=== PATIENT | female | born 1940 | race Caucasian/White ===

== ENCOUNTER 2018-04-10 10:28 | Outpatient (CLI) | payer MEDICARE | END 2018-04-10 10:29 | disposition home or self-care (01) | LOC: BICRAD 10:28 | PROVIDERS: ATTEND Podiatrist | DX: M19.072 Primary osteoarthritis, left ankle and foot (principal); Z98.890 Other specified postprocedural states ==

== ENCOUNTER 2019-10-13 14:22 | Emergency (ER) | payer MEDICARE | END 2019-10-13 15:35 | disposition home or self-care (01) | LOC: ERS 14:22 | DX: T78.40XA Allergy, unspecified, initial encounter (principal) | CPT/HCPCS: 99282 ==

== ENCOUNTER 2021-03-02 21:52 | Observation (INO) | payer MEDICARE ==
[~2021-03-02 21:52] MED LIST: Iopamidol-370 76% 500 ML 1 ML ONE
[2021-03-02 22:44] LABS: ALT (SGPT) 9 U/L (8-55); AST (SGOT) 20 U/L (5-34); Albumin 3.7 g/dL (3.4-4.8); Alkaline Phosphatase 54 U/L (40-110); Anion Gap 15 mmol/L (10-20); BUN (Urea Nitrogen) 11 mg/dL (9.8-20.1); Bilirubin, Total Less than 0.2 mg/dL (0.2-1.2); Calc. Creatinine Clearance 0 mL/min (70-130); Calcium 8.4 mg/dL (7.8-10.44); Carbon Dioxide 21 mmol/L (23-31); Chloride 109 mmol/L (98-107); Globulin 2.5 g/dL (2.4-3.5); Glucose 84 mg/dL (83-110); Potassium 5.2 mmol/L (3.5-5.1); Protein, Total 6.2 g/dL (5.8-8.1); Sodium 140 mmol/L (136-145)
[2021-03-02 22:47] LABS: Hemoglobin 11.2 g/dL (12.0-16.0); Mean Corpuscular HGB CONC 30.3 g/dL (32.0-36.0); Mean Corpuscular Hemoglobin 29.6 pg (27.0-31.0); Mean Corpuscular Volume 97.4 fL (78.0-98.0); Mean Platelet Volume 7.5 fL (7.4-10.4); Platelet Count 173 thou/uL (130-400); RBC Distribution Width 14.7 % (11.5-14.5); Red Blood Cell (RBC) Count 3.77 mill/uL (4.20-5.40)
[2021-03-02 22:48] LABS: Lymphocytes 97 % (21-51); MDiff Complete? YES; Monocytes 1 % (0-10); Neutrophil 2 % (42-75); Platelet Morphology Comment Appears Adequate
[2021-03-03 00:26] LABS: SARS-CoV-2 NAA Rapid Test Not Detected (NotDetected)
[2021-03-03 00:38] LABS: Phosphorus 2.5 mg/dL (2.3-4.7)
[2021-03-03 01:41] LABS: Troponin I Less than 0.010 ng/mL (< 0.028)
[2021-03-03 05:49] LABS: Troponin I Less than 0.010 ng/mL (< 0.028)
[2021-03-03] MEDS ORDERED: Ondansetron ODT 4 MG TAB PO PRN (06:48)
[2021-03-03] MEDS ORDERED: Ondansetron PF 4 MG/2 ML Vial IVP PRN (06:48)
[2021-03-03] MEDS ORDERED: Acetaminophen 325 MG TAB PO PRN (06:48)
[2021-03-03 07:29] LABS: Hemoglobin 12.3 g/dL (12.0-16.0); Mean Corpuscular HGB CONC 31.7 g/dL (32.0-36.0); Mean Corpuscular Hemoglobin 31.3 pg (27.0-31.0); Mean Corpuscular Volume 98.5 fL (78.0-98.0); Mean Platelet Volume 7.5 fL (7.4-10.4); Platelet Count 169 thou/uL (130-400); RBC Distribution Width 14.7 % (11.5-14.5); Red Blood Cell (RBC) Count 3.92 mill/uL (4.20-5.40)
[2021-03-03 07:41] LABS: Anion Gap 11 mmol/L (10-20); BUN (Urea Nitrogen) 10 mg/dL (9.8-20.1); Calc. Creatinine Clearance 0 mL/min (70-130); Calcium 8.2 mg/dL (7.8-10.44); Carbon Dioxide 25 mmol/L (23-31); Chloride 113 mmol/L (98-107); Glucose 97 mg/dL (83-110); Potassium 5.1 mmol/L (3.5-5.1); Sodium 144 mmol/L (136-145)
[2021-03-03 07:59] LABS: MDiff Complete? YES
[2021-03-03 08:00] LABS: Lymphocytes 91 % (21-51); Monocytes 3 % (0-10); Neutrophil 6 % (42-75); Platelet Morphology Comment Appears Adequate; Polychromasia SLIGHT = 2-3 cells (100X) (0-2/hpf)
[2021-03-03] MEDS ORDERED: Furosemide 40 MG/4 ML VIAL SLOW IVP SCH (09:00)
[2021-03-03] MEDS ORDERED: Enoxaparin Sodium 40 MG/0.4 ML SYRINGE ONE (09:55)
[2021-03-03] MEDS ORDERED: Furosemide 40 MG/4 ML VIAL ONE (09:55)
[2021-03-03] MEDS: Enoxaparin Sodium 40 MG/0.4 ML SYRINGE SC SCH (10:36)
[2021-03-03] MEDS: Furosemide 40 MG/4 ML VIAL SLOW IVP SCH (10:37)
[2021-03-03 17:37] VITALS: BMI 22.9
[2021-03-03] MEDS ORDERED: Loratadine 10 MG TAB PO SCH (21:15)
[2021-03-03] MEDS ORDERED: Zolpidem Tartrate 5 MG TAB PO SCH (22:00)
[2021-03-04 05:35] LABS: ALT (SGPT) 8 U/L (8-55); AST (SGOT) 16 U/L (5-34); Albumin 3.7 g/dL (3.4-4.8); Alkaline Phosphatase 58 U/L (40-110); Anion Gap 10 mmol/L (10-20); BUN (Urea Nitrogen) 10 mg/dL (9.8-20.1); Bilirubin, Total 0.3 mg/dL (0.2-1.2); Calc. Creatinine Clearance 76 mL/min (70-130); Calcium 8.6 mg/dL (7.8-10.44); Carbon Dioxide 28 mmol/L (23-31); Chloride 107 mmol/L (98-107); Globulin 2.5 g/dL (2.4-3.5); Glucose 84 mg/dL (83-110); Mean Corpuscular HGB CONC 30.8 g/dL (32.0-36.0); Mean Corpuscular Hemoglobin 30.2 pg (27.0-31.0); Mean Platelet Volume 7.6 fL (7.4-10.4); Platelet Count 152 thou/uL (130-400); Potassium 3.6 mmol/L (3.5-5.1); Protein, Total 6.2 g/dL (5.8-8.1); RBC Distribution Width 14.7 % (11.5-14.5); Red Blood Cell (RBC) Count 3.99 mill/uL (4.20-5.40); Sodium 141 mmol/L (136-145); White Blood Cell (WBC) Count 59.5 thou/uL (4.8-10.8)
[2021-03-04 06:51] LABS: Band 1 % (5-11); Eosinophils 1 % (0-10); Lymphocytes 90 % (21-51); Monocytes 2 % (0-10); Neutrophil 6 % (42-75)
[2021-03-04 06:52] LABS: MDiff Complete? YES
[2021-03-04 08:18] VITALS: TEMP 98.2
[2021-03-04] MEDS ORDERED: FLUoxetine HCl 20 MG CAP PO SCH (09:00)
[2021-03-04] MEDS ORDERED: predniSONE 50 MG TAB PO SCH (09:00)
[2021-03-04 09:31] LABS: Platelet Morphology Comment Appears Adequate; Polychromasia SLIGHT = 2-3 cells (100X) (0-2/hpf)
[2021-03-04] MEDS: Enoxaparin Sodium 40 MG/0.4 ML SYRINGE SC SCH (09:31)
[2021-03-04] MEDS: Furosemide 40 MG/4 ML VIAL SLOW IVP SCH (09:33)
[2021-03-04 12:14] VITALS: BP 115/68
[2021-03-04] MEDS ORDERED: Pregabalin 75 MG CAP PO SCH (21:00)
[2021-03-04] MEDS ORDERED: Zolpidem Tartrate 5 MG TAB PO SCH (21:00)
== END 2021-03-04 12:05 | disposition home or self-care (01) ==
LOC: ERS 21:52 → ERHOLD 03-03 00:39 → 2NO 03-03 16:51
PROVIDERS: ADMIT Student in an Organized Health Care Education/Training Program; ATTEND Internal Medicine
DX: I50.33 Acute on chronic diastolic (congestive) heart failure (principal); C91.10 Chronic lymphocytic leukemia of B-cell type not having achieved remission; M19.90 Unspecified osteoarthritis, unspecified site; E87.6 Hypokalemia; D64.9 Anemia, unspecified; M81.0 Age-related osteoporosis without current pathological fracture; I44.0 Atrioventricular block, first degree; Z87.891 Personal history of nicotine dependence; Z79.52 Long term (current) use of systemic steroids; Z79.899 Other long term (current) drug therapy; Z20.822 Contact with and (suspected) exposure to COVID-19
CPT/HCPCS: 0240U; 71045; 71275; 80048; 80053 ×2; 83735; 83880 ×2; 84100; 84484 ×3; 85025 ×3; 85379; 93005; 93306; 96372 ×2; 96374; 96376; G0378 ×3; 36415; J1650; J1940; J7512; Q9967

== ENCOUNTER 2021-12-21 12:50 | Outpatient (CLI) | payer MEDICARE | END 2021-12-21 12:51 | disposition home or self-care (01) | LOC: BICRAD 12:50 | PROVIDERS: ATTEND Podiatrist | DX: M79.672 Pain in left foot (principal); M25.572 Pain in left ankle and joints of left foot; M19.072 Primary osteoarthritis, left ankle and foot; M21.42 Flat foot [pes planus] (acquired), left foot; Z98.890 Other specified postprocedural states ==

== ENCOUNTER 2022-03-16 21:36 | Emergency (ER) | payer MEDICARE ==
[2022-03-16] MEDS ORDERED: HYDROcodone/Acetaminophen 5/325 mg Tablet ONE (23:12)
== END 2022-03-17 03:05 | disposition home or self-care (01) ==
LOC: ERS 21:36
DX: S52.615A Nondisplaced fracture of left ulna styloid process, initial encounter for closed fracture (principal); S52.502A Unspecified fracture of the lower end of left radius, initial encounter for closed fracture; S60.222A Contusion of left hand, initial encounter; M19.90 Unspecified osteoarthritis, unspecified site; W18.30XA Fall on same level, unspecified, initial encounter; R07.89 Other chest pain
CPT/HCPCS: 29105; 93005

== ENCOUNTER 2022-07-23 17:36 | Emergency (ER) | payer MEDICARE | END 2022-07-23 21:53 | disposition home or self-care (01) | LOC: ERS 17:36 | DX: M25.561 Pain in right knee (principal); M25.461 Effusion, right knee; Z87.891 Personal history of nicotine dependence | CPT/HCPCS: 93970 ==

== ENCOUNTER 2023-03-17 16:31 | Inpatient (IN) | payer MEDICARE ==
[~2023-03-17 16:31] MED LIST changes: -Iopamidol-370 76% 500 ML 1 ML ONE; +Iopamidol-370 76% 500 ML MDV (1 ML CHARGE) ONE
[2023-03-17] MEDS ORDERED: Morphine 4 MG/ML VIAL ONE (19:02)
[2023-03-17] MEDS ORDERED: Acetaminophen/Codeine 30-300mg Tablet ONE ×2 (19:02→19:05)
[2023-03-17] MEDS ORDERED: Ipratropium/Albuterol 3 ML NEB ONE (19:05)
[2023-03-17 19:11] LABS: Hemoglobin 12.4 g/dL (12.0-16.0); Mean Corpuscular HGB CONC 31.5 g/dL (32.0-36.0); Mean Corpuscular Hemoglobin 30.7 pg (27.0-31.0); Mean Corpuscular Volume 97.3 fl (78.0-98.0); Mean Platelet Volume 7.2 fL (7.4-10.4); Platelet Count 217 10x3/uL (130-400); RBC Distribution Width 13.9 % (11.5-14.5); Red Blood Cell (RBC) Count 4.05 mill/uL (4.20-5.40)
[2023-03-17 19:27] LABS: ALT (SGPT) 7 U/L (8-55); AST (SGOT) 27 U/L (5-34); Albumin 4.2 g/dL (3.4-4.8); Alkaline Phosphatase 85 U/L (40-110); Anion Gap 17 mmol/L (10-20); BUN (Urea Nitrogen) 17 mg/dL (9.8-20.1); Bilirubin, Total 0.3 mg/dL (0.2-1.2); CK (CPK) 32 U/L (29-168); Calc. Creatinine Clearance 0 mL/min (70-130); Calcium 9.2 mg/dL (7.8-10.44); Carbon Dioxide 24 mmol/L (23-31); Chloride 103 mmol/L (98-107); Estimated GFR 84; Globulin 2.6 g/dL (2.4-3.5); Glucose 108 mg/dL (83-110); Potassium 5.7 mmol/L (3.5-5.1); Protein, Total 6.8 g/dL (5.8-8.1); Sodium 138 mmol/L (136-145)
[2023-03-17 19:35] LABS: Band 2 % (5-11); Lymphocytes 85 % (21-51); MDiff Complete? YES; Monocytes 1 % (0-10); Neutrophil 12 % (42-75); Platelet Morphology Comment Appears Adequate; RBC Morphology Normal; Reflex for Review?? NO; Smudge Cells MODERATE
[2023-03-17] MEDS ORDERED: CALCIUM GLUC 1 GM/NS 50 ML BAG ONE (21:55)
[2023-03-17] MEDS ORDERED: Dextrose 50% Abboject 50 ML SYRINGE ONE ×2 (21:55→21:56)
[2023-03-17] MEDS ORDERED: Insulin Regular 300 UNITS/3 ML VIAL ONE (22:03)
[2023-03-17] MEDS ORDERED: Morphine 2 MG/ML VIAL ONE (22:34)
[2023-03-18 00:21] VITALS: BMI 25.0
[2023-03-18] MEDS: HYDROcodone/Acetaminophen 7.5/325 mg Tablet PO PRN ×3 (00:32→10:34)
[2023-03-18 04:33] LABS: Hemoglobin 10.2 g/dL (12.0-16.0); Mean Corpuscular Hemoglobin 28.1 pg (27.0-31.0); Mean Corpuscular Volume 96.5 fl (78.0-98.0); Red Blood Cell (RBC) Count 3.63 mill/uL (4.20-5.40)
[2023-03-18 04:47] LABS: Anion Gap 12 mmol/L (10-20); BUN (Urea Nitrogen) 14 mg/dL (9.8-20.1); Calc. Creatinine Clearance 84 mL/min (70-130); Calcium 8.6 mg/dL (7.8-10.44); Carbon Dioxide 24 mmol/L (23-31); Chloride 106 mmol/L (98-107); Estimated GFR 89; Glucose 101 mg/dL (83-110); Potassium 4.4 mmol/L (3.5-5.1); Sodium 138 mmol/L (136-145)
[2023-03-18 04:49] LABS: Elliptocytes SLIGHT = 2-5 cells (100X) (0-1/hpf); Hypochromia SLIGHT = 6-15 cells (100X) (0-5/hpf); Lymphocytes 98 % (21-51); MDiff Complete? YES; Mean Corpuscular HGB CONC 29.2 g/dL (32.0-36.0); Mean Platelet Volume 7.3 fL (7.4-10.4); Neutrophil 2 % (42-75); Platelet Count 181 10x3/uL (130-400); Platelet Morphology Comment Appears Adequate; RBC Distribution Width 13.9 % (11.5-14.5); Smudge Cells MODERATE; Tear Drops SLIGHT = 2-5 cells (100X) (0-1/hpf); White Blood Cell (WBC) Count 84.2 10x3/uL (4.8-10.8)
[2023-03-18] MEDS: Famotidine 20 MG TAB PO SCH ×2 (08:38→22:03)
[2023-03-18] MEDS: Pregabalin 75 MG CAP PO SCH ×2 (08:38→22:03)
[2023-03-18] MEDS: Ondansetron PF 4 MG/2 ML Vial IVP PRN (08:56)
[2023-03-18] MEDS ORDERED: Iopamidol-370 76% 500 ML MDV (1 ML CHARGE) ONE (11:50)
[2023-03-18] MEDS ORDERED: HYDROmorphone 0.5 MG/0.5 ML SYRINGE SLOW IVP SCH (15:30)
[2023-03-18] MEDS ORDERED: Morphine 2 MG/ML VIAL SLOW IVP PRN (15:40)
[2023-03-18] MEDS ORDERED: Furosemide 20 MG/2 ML VIAL SLOW IVP SCH (15:41)
[2023-03-18] MEDS: Phenol 118 ML BOT PO PRN (16:26)
[2023-03-18] MEDS ORDERED: Ipratropium/Albuterol 3 ML NEB EZPAP PRN (19:13)
[2023-03-18] MEDS: Zolpidem Tartrate 5 MG TAB PO SCH (22:03)
[2023-03-18] MEDS: Benzonatate 100 MG CAP PO PRN (22:40)
[2023-03-19 06:32] LABS: Hemoglobin 11.5 g/dL (12.0-16.0); Hypochromia SLIGHT = 6-15 cells (100X) (0-5/hpf); Lymphocytes 83 % (21-51); MDiff Complete? YES; Mean Corpuscular HGB CONC 30.8 g/dL (32.0-36.0); Mean Corpuscular Hemoglobin 29.7 pg (27.0-31.0); Mean Corpuscular Volume 96.6 fl (78.0-98.0); Mean Platelet Volume 7.2 fL (7.4-10.4); Monocytes 2 % (0-10); Neutrophil 7 % (42-75); Platelet Count 174 10x3/uL (130-400); Platelet Morphology Comment Appears Adequate; RBC Distribution Width 13.9 % (11.5-14.5); Reactive Lymphocytes 8 % (0-10); Red Blood Cell (RBC) Count 3.86 mill/uL (4.20-5.40); White Blood Cell (WBC) Count 79.9 10x3/uL (4.8-10.8)
[2023-03-19 06:45] LABS: ALT (SGPT) 16 U/L (8-55); AST (SGOT) 32 U/L (5-34); Albumin 3.6 g/dL (3.4-4.8); Alkaline Phosphatase 75 U/L (40-110); Anion Gap 14 mmol/L (10-20); BUN (Urea Nitrogen) 9 mg/dL (9.8-20.1); Bilirubin, Total 0.4 mg/dL (0.2-1.2); Calc. Creatinine Clearance 79 mL/min (70-130); Calcium 9.1 mg/dL (7.8-10.44); Carbon Dioxide 26 mmol/L (23-31); Chloride 103 mmol/L (98-107); Estimated GFR 87; Globulin 2.3 g/dL (2.4-3.5); Glucose 102 mg/dL (83-110); Potassium 4.6 mmol/L (3.5-5.1); Protein, Total 5.9 g/dL (5.8-8.1); Sodium 138 mmol/L (136-145)
[2023-03-19] MEDS: Pregabalin 75 MG CAP PO SCH ×2 (08:11→20:00)
[2023-03-19] MEDS: Benzonatate 100 MG CAP PO PRN (08:12)
[2023-03-19] MEDS: Famotidine 20 MG TAB PO SCH ×2 (08:12→20:00)
[2023-03-19] MEDS: Phenol 118 ML BOT PO PRN (08:12)
[2023-03-19] MEDS: Ondansetron PF 4 MG/2 ML Vial IVP PRN (09:19)
[2023-03-19] MEDS ORDERED: Furosemide 20 MG/2 ML VIAL SLOW IVP SCH (09:30)
[2023-03-19] MEDS ORDERED: Furosemide 40 MG/4 ML VIAL SLOW IVP SCH ×2 (09:45→12:00)
[2023-03-19] MEDS: Vancomycin 1.5 GRAM/300 ML BAG 1.5 GM in Premix Bag 1 BAG IVPB SCH (10:27)
[2023-03-19 13:13] LABS: SARS-CoV-2 NAA Rapid Test Not Detected (NotDetected)
[2023-03-19 15:17] LABS: Bacteria/HPF 3+ HPF (None Seen); Bilirubin Negative (Negative); Blood, Urine Trace (Negative); CAUTI Indications for Culture Alt mental st,lethar; Calcium Oxalate Crystals Rare HPF (None Seen); Clarity Clear (Clear); Glucose, Urine (Dipstick) Normal (Negative); Ketone, Urine Negative (Negative); Leukocyte 250 Leu/uL (Negative); Nitrite 1+ (Negative); Protein, Urine (Dipstick) Negative (Neg-Trace); RBC/HPF 0-3 HPF (0-3); Renal Epithelial 0-3 HPF (None Seen); Specific Gravity, Urine 1.008 (1.002-1.036); Squamous Epithelial 0-3 HPF (0-3); Urobilinogen Normal mg/dL (Less than 2)
[2023-03-19 15:19] LABS: Urine Culture Reflex Yes Yes
[2023-03-19] MEDS: Zolpidem Tartrate 5 MG TAB PO SCH (20:00)
[2023-03-19] MEDS: Cefepime 1 GM in Sodium Chloride 0.9% 100 ML IVPB SCH (20:01)
[2023-03-19] MEDS ORDERED: VANCOMYCIN 1.75 GM/500 ML BAG 1.75 GM in Premix Bag 1 BAG IVPB SCH (21:00)
[2023-03-20 04:33] LABS: ALT (SGPT) 18 U/L (8-55); AST (SGOT) 27 U/L (5-34); Albumin 3.6 g/dL (3.4-4.8); Alkaline Phosphatase 68 U/L (40-110); Anion Gap 13 mmol/L (10-20); BUN (Urea Nitrogen) 18 mg/dL (9.8-20.1); Bilirubin, Total 0.5 mg/dL (0.2-1.2); Calc. Creatinine Clearance 73 mL/min (70-130); Carbon Dioxide 27 mmol/L (23-31); Chloride 101 mmol/L (98-107); Estimated GFR 83; Globulin 2.5 g/dL (2.4-3.5); Glucose 109 mg/dL (83-110); Protein, Total 6.1 g/dL (5.8-8.1); Sodium 137 mmol/L (136-145)
[2023-03-20 05:08] LABS: Band 1 % (5-11); Hemoglobin 11.1 g/dL (12.0-16.0); Lymphocytes 89 % (21-51); MDiff Complete? YES; Mean Corpuscular HGB CONC 28.8 g/dL (32.0-36.0); Mean Corpuscular Hemoglobin 27.7 pg (27.0-31.0); Mean Corpuscular Volume 96.3 fl (78.0-98.0); Mean Platelet Volume 7.6 fL (7.4-10.4); Neutrophil 10 % (42-75); Nucleated RBC (Manual Ct) 1 % (0); Platelet Count 161 10x3/uL (130-400); Platelet Morphology Comment Appears Adequate; Smudge Cells SLIGHT; Tear Drops SLIGHT = 2-5 cells (100X) (0-1/hpf); White Blood Cell (WBC) Count 97.4 10x3/uL (4.8-10.8)
[2023-03-20] MEDS: Cefepime 1 GM in Sodium Chloride 0.9% 100 ML IVPB SCH ×2 (09:49→19:52)
[2023-03-20] MEDS: Pregabalin 75 MG CAP PO SCH ×2 (09:50→19:51)
[2023-03-20] MEDS: Famotidine 20 MG TAB PO SCH ×2 (09:50→19:51)
[2023-03-20] MEDS: Vancomycin 1.5 GRAM/300 ML BAG 1.5 GM in Premix Bag 1 BAG IVPB SCH (12:53)
[2023-03-20] MEDS: Zolpidem Tartrate 5 MG TAB PO SCH (19:52)
[2023-03-21 03:59] LABS: Band 2 % (5-11); Hemoglobin 10.6 g/dL (12.0-16.0); Hypochromia SLIGHT = 6-15 cells (100X) (0-5/hpf); Lymphocytes 87 % (21-51); MDiff Complete? YES; Mean Corpuscular HGB CONC 29.2 g/dL (32.0-36.0); Mean Corpuscular Hemoglobin 28.2 pg (27.0-31.0); Mean Corpuscular Volume 96.7 fl (78.0-98.0); Mean Platelet Volume 7.6 fL (7.4-10.4); Monocytes 1 % (0-10); Neutrophil 10 % (42-75); Platelet Count 151 10x3/uL (130-400); Platelet Morphology Comment Appears Adequate; RBC Distribution Width 13.8 % (11.5-14.5); Red Blood Cell (RBC) Count 3.77 mill/uL (4.20-5.40); White Blood Cell (WBC) Count 74.9 10x3/uL (4.8-10.8)
[2023-03-21 04:03] LABS: ALT (SGPT) 15 U/L (8-55); AST (SGOT) 22 U/L (5-34); Albumin 3.4 g/dL (3.4-4.8); Alkaline Phosphatase 64 U/L (40-110); Anion Gap 12 mmol/L (10-20); BUN (Urea Nitrogen) 17 mg/dL (9.8-20.1); Bilirubin, Total 0.3 mg/dL (0.2-1.2); Calc. Creatinine Clearance 80 mL/min (70-130); Calcium 9.2 mg/dL (7.8-10.44); Carbon Dioxide 28 mmol/L (23-31); Chloride 103 mmol/L (98-107); Estimated GFR 88; Globulin 2.4 g/dL (2.4-3.5); Glucose 109 mg/dL (83-110); Potassium 4.1 mmol/L (3.5-5.1); Protein, Total 5.8 g/dL (5.8-8.1); Sodium 139 mmol/L (136-145)
[2023-03-21] MEDS: Famotidine 20 MG TAB PO SCH ×2 (08:53→20:03)
[2023-03-21] MEDS: Pregabalin 75 MG CAP PO SCH ×2 (08:53→20:02)
[2023-03-21] MEDS: Cefepime 1 GM in Sodium Chloride 0.9% 100 ML IVPB SCH (08:53)
[2023-03-21] MEDS ORDERED: Magnevist 469MG/ML 20 ML VIAL ONE (10:22)
[2023-03-21] MEDS ORDERED: Vancomycin 1 GM in Premix Bag 1 BAG IVPB SCH ×2 (10:23→22:00)
[2023-03-21] MEDS: Vancomycin 1.5 GRAM/300 ML BAG 1.5 GM in Premix Bag 1 BAG IVPB SCH (12:49)
[2023-03-21] MEDS: Ciprofloxacin 500 MG TAB PO SCH (20:02)
[2023-03-21] MEDS: Zolpidem Tartrate 5 MG TAB PO SCH (20:03)
[2023-03-22 04:25] LABS: ALT (SGPT) 14 U/L (8-55); AST (SGOT) 19 U/L (5-34); Albumin 3.4 g/dL (3.4-4.8); Alkaline Phosphatase 69 U/L (40-110); Anion Gap 12 mmol/L (10-20); BUN (Urea Nitrogen) 15 mg/dL (9.8-20.1); Bilirubin, Total 0.4 mg/dL (0.2-1.2); Calc. Creatinine Clearance 82 mL/min (70-130); Calcium 9.2 mg/dL (7.8-10.44); Carbon Dioxide 26 mmol/L (23-31); Chloride 106 mmol/L (98-107); Estimated GFR 89; Globulin 2.4 g/dL (2.4-3.5); Glucose 98 mg/dL (83-110); Potassium 4.9 mmol/L (3.5-5.1); Protein, Total 5.8 g/dL (5.8-8.1); Sodium 139 mmol/L (136-145)
[2023-03-22 04:46] LABS: Hypochromia SLIGHT = 6-15 cells (100X) (0-5/hpf); Lymphocytes 93 % (21-51); MDiff Complete? YES; Monocytes 1 % (0-10); Neutrophil 6 % (42-75); Platelet Morphology Comment Appears Adequate; Polychromasia SLIGHT = 2-3 cells (100X) (0-2/hpf); Tear Drops SLIGHT = 2-5 cells (100X) (0-1/hpf)
[2023-03-22] MEDS: Ciprofloxacin 500 MG TAB PO SCH ×2 (06:31→20:04)
[2023-03-22] MEDS: Famotidine 20 MG TAB PO SCH ×2 (08:57→20:05)
[2023-03-22] MEDS: Pregabalin 75 MG CAP PO SCH ×2 (08:57→20:05)
[2023-03-22 10:07] LABS: Hemoglobin 11.1 g/dL (12.0-16.0); Mean Corpuscular HGB CONC 28.6 g/dL (32.0-36.0); Mean Corpuscular Hemoglobin 27.4 pg (27.0-31.0); Platelet Count 174 10x3/uL (130-400); RBC Distribution Width 13.9 % (11.5-14.5); Red Blood Cell (RBC) Count 4.06 mill/uL (4.20-5.40); White Blood Cell (WBC) Count 84.4 10x3/uL (4.8-10.8)
[2023-03-22 10:11] LABS: Smudge Cells SLIGHT
[2023-03-22] MEDS: HYDROcodone/Acetaminophen 7.5/325 mg Tablet PO PRN ×2 (13:14→21:47)
[2023-03-22] MEDS: guaiFENesin ER 600 MG TAB PO SCH (20:04)
[2023-03-22] MEDS ORDERED: Melatonin 3 MG TAB PO SCH (21:00)
[2023-03-23 05:38] LABS: Mean Corpuscular HGB CONC 30.7 g/dL (32.0-36.0); Mean Corpuscular Hemoglobin 29.2 pg (27.0-31.0); Mean Corpuscular Volume 95.2 fl (78.0-98.0); Mean Platelet Volume 7.9 fL (7.4-10.4); Platelet Count 143 10x3/uL (130-400); RBC Distribution Width 13.7 % (11.5-14.5); Red Blood Cell (RBC) Count 3.76 mill/uL (4.20-5.40); White Blood Cell (WBC) Count 76.5 10x3/uL (4.8-10.8)
[2023-03-23 06:00] LABS: Anion Gap 12 mmol/L (10-20); BUN (Urea Nitrogen) 15 mg/dL (9.8-20.1); Calc. Creatinine Clearance 80 mL/min (70-130); Calcium 9.1 mg/dL (7.8-10.44); Carbon Dioxide 27 mmol/L (23-31); Chloride 104 mmol/L (98-107); Estimated GFR 88; Glucose 104 mg/dL (83-110); Potassium 4.5 mmol/L (3.5-5.1); Sodium 138 mmol/L (136-145)
[2023-03-23 06:10] LABS: Lymphocytes 95 % (21-51); MDiff Complete? YES; Neutrophil 5 % (42-75)
[2023-03-23] MEDS: Ciprofloxacin 500 MG TAB PO SCH ×2 (06:24→20:26)
[2023-03-23] MEDS: Famotidine 20 MG TAB PO SCH ×2 (09:46→20:25)
[2023-03-23] MEDS: guaiFENesin ER 600 MG TAB PO SCH ×2 (09:46→20:27)
[2023-03-23] MEDS: Pregabalin 75 MG CAP PO SCH ×2 (09:46→20:26)
[2023-03-23] MEDS: HYDROcodone/Acetaminophen 7.5/325 mg Tablet PO PRN (09:49)
[2023-03-23] MEDS: Benzonatate 100 MG CAP PO PRN (09:49)
[2023-03-23] MEDS ORDERED: PALONOSETRON HCL 0.05 MG/ML 5 ML VIAL IVP SCH (11:30)
[2023-03-23] MEDS ORDERED: Dexamethasone 10 MG in Sodium Chloride 0.9% 50 ML IVPB SCH (11:30)
[2023-03-23] MEDS ORDERED: CARBOPLATIN IVPB SCH (12:30)
[2023-03-23] MEDS ORDERED: SODIUM CHLORIDE 0.9% IVPB SCH (12:30)
[2023-03-23] MEDS ORDERED: Polyethylene Glycol 3350 17 GM Packet PO PRN (14:57)
[2023-03-23] MEDS ORDERED: Bisacodyl 10 MG SUPP PR PRN (14:58)
[2023-03-23] MEDS: Melatonin 3 MG TAB PO PRN (22:04)
[2023-03-24 05:27] LABS: Anion Gap 14 mmol/L (10-20); BUN (Urea Nitrogen) 14 mg/dL (9.8-20.1); Calc. Creatinine Clearance 80 mL/min (70-130); Calcium 9.5 mg/dL (7.8-10.44); Carbon Dioxide 24 mmol/L (23-31); Chloride 105 mmol/L (98-107); Estimated GFR 88; Glucose 138 mg/dL (83-110); Potassium 5.2 mmol/L (3.5-5.1); Sodium 138 mmol/L (136-145)
[2023-03-24] MEDS: Ciprofloxacin 500 MG TAB PO SCH ×2 (05:55→21:22)
[2023-03-24 09:42] LABS: Hemoglobin 11.2 g/dL (12.0-16.0); Lymphocytes 88 % (21-51); MDiff Complete? YES; Mean Corpuscular HGB CONC 29.9 g/dL (32.0-36.0); Mean Corpuscular Hemoglobin 28.4 pg (27.0-31.0); Mean Corpuscular Volume 94.7 fl (78.0-98.0); Mean Platelet Volume 8.6 fL (7.4-10.4); Monocytes 2 % (0-10); Neutrophil 9 % (42-75); Platelet Count 151 10x3/uL (130-400); Platelet Morphology Comment Appears Adequate; Polychromasia SLIGHT = 2-3 cells (100X) (0-2/hpf); RBC Distribution Width 13.7 % (11.5-14.5); Reactive Lymphocytes 1 % (0-10); Red Blood Cell (RBC) Count 3.95 mill/uL (4.20-5.40); Smudge Cells MODERATE; White Blood Cell (WBC) Count 78.9 10x3/uL (4.8-10.8)
[2023-03-24] MEDS: Pregabalin 75 MG CAP PO SCH ×2 (09:55→21:22)
[2023-03-24] MEDS: Polyethylene Glycol 3350 17 GM Packet PO SCH (09:56)
[2023-03-24] MEDS: Famotidine 20 MG TAB PO SCH ×2 (09:56→21:22)
[2023-03-24] MEDS: guaiFENesin ER 600 MG TAB PO SCH ×2 (09:56→21:22)
[2023-03-24] MEDS: Melatonin 3 MG TAB PO PRN (23:47)
[2023-03-25 05:12] LABS: Hemoglobin 9.8 g/dL (12.0-16.0); Mean Corpuscular HGB CONC 27.6 g/dL (32.0-36.0); Mean Corpuscular Hemoglobin 26.6 pg (27.0-31.0); Mean Corpuscular Volume 96.4 fl (78.0-98.0); Mean Platelet Volume 7.9 fL (7.4-10.4); Platelet Count 134 10x3/uL (130-400); RBC Distribution Width 13.8 % (11.5-14.5); Red Blood Cell (RBC) Count 3.66 mill/uL (4.20-5.40); White Blood Cell (WBC) Count 71.6 10x3/uL (4.8-10.8)
[2023-03-25 05:31] LABS: Anion Gap 12 mmol/L (10-20); BUN (Urea Nitrogen) 15 mg/dL (9.8-20.1); Calc. Creatinine Clearance 84 mL/min (70-130); Calcium 9.2 mg/dL (7.8-10.44); Carbon Dioxide 26 mmol/L (23-31); Chloride 107 mmol/L (98-107); Estimated GFR 89; Glucose 88 mg/dL (83-110); Potassium 5.3 mmol/L (3.5-5.1); Sodium 140 mmol/L (136-145)
[2023-03-25 05:32] LABS: Lymphocytes 94 % (21-51); MDiff Complete? YES; Neutrophil 4 % (42-75); Reactive Lymphocytes 2 % (0-10); Smudge Cells SLIGHT
[2023-03-25] MEDS: guaiFENesin ER 600 MG TAB PO SCH ×2 (08:29→20:25)
[2023-03-25] MEDS: Polyethylene Glycol 3350 17 GM Packet PO SCH (08:29)
[2023-03-25] MEDS: Famotidine 20 MG TAB PO SCH ×2 (08:29→20:24)
[2023-03-25] MEDS: Pregabalin 75 MG CAP PO SCH ×2 (11:11→20:26)
[2023-03-25] MEDS ORDERED: Senokot S 8.6-50 MG TAB PO PRN (20:06)
[2023-03-25] MEDS: Melatonin 3 MG TAB PO PRN (20:24)
[2023-03-26 05:22] LABS: Hemoglobin 10.3 g/dL (12.0-16.0); Mean Corpuscular HGB CONC 28.5 g/dL (32.0-36.0); Mean Corpuscular Hemoglobin 27.5 pg (27.0-31.0); Mean Corpuscular Volume 96.6 fl (78.0-98.0); Mean Platelet Volume 8.1 fL (7.4-10.4); Platelet Count 143 10x3/uL (130-400); RBC Distribution Width 13.9 % (11.5-14.5); Red Blood Cell (RBC) Count 3.74 mill/uL (4.20-5.40); White Blood Cell (WBC) Count 80.8 10x3/uL (4.8-10.8)
[2023-03-26 05:35] LABS: Anion Gap 11 mmol/L (10-20); BUN (Urea Nitrogen) 16 mg/dL (9.8-20.1); Calc. Creatinine Clearance 84 mL/min (70-130); Calcium 9.3 mg/dL (7.8-10.44); Carbon Dioxide 27 mmol/L (23-31); Chloride 105 mmol/L (98-107); Estimated GFR 89; Glucose 95 mg/dL (83-110); Potassium 4.8 mmol/L (3.5-5.1); Sodium 138 mmol/L (136-145)
[2023-03-26] MEDS ORDERED: PEGFILGRASTIM-JMDB 6 MG/0.6 ML SYRINGE SQ SCH (06:00)
[2023-03-26 08:31] LABS: Band 1 % (5-11); Lymphocytes 90 % (21-51); MDiff Complete? YES; Neutrophil 6 % (42-75); Platelet Morphology Comment Appears Adequate; RBC Morphology Within Normal Limits; Reactive Lymphocytes 3 % (0-10); Smudge Cells SLIGHT
[2023-03-26] MEDS: Pregabalin 75 MG CAP PO SCH ×2 (08:53→21:27)
[2023-03-26] MEDS: Polyethylene Glycol 3350 17 GM Packet PO SCH (08:53)
[2023-03-26] MEDS: guaiFENesin ER 600 MG TAB PO SCH ×2 (08:53→21:31)
[2023-03-26] MEDS: Famotidine 20 MG TAB PO SCH ×2 (08:53→21:30)
[2023-03-26] MEDS ORDERED: Senokot S 8.6-50 MG TAB PO PRN (15:00)
[2023-03-26] MEDS: Melatonin 3 MG TAB PO PRN (21:30)
[2023-03-26 22:44] LABS: Troponin I Less than 0.010 ng/mL (< 0.028)
[2023-03-27 05:18] LABS: Hemoglobin 10.2 g/dL (12.0-16.0); Mean Corpuscular HGB CONC 27.6 g/dL (32.0-36.0); Mean Corpuscular Hemoglobin 26.5 pg (27.0-31.0); Mean Corpuscular Volume 96.1 fl (78.0-98.0); Platelet Count 139 10x3/uL (130-400); RBC Distribution Width 13.9 % (11.5-14.5); Red Blood Cell (RBC) Count 3.86 mill/uL (4.20-5.40); White Blood Cell (WBC) Count 94.8 10x3/uL (4.8-10.8)
[2023-03-27 05:25] LABS: Anion Gap 11 mmol/L (10-20); BUN (Urea Nitrogen) 17 mg/dL (9.8-20.1); Calc. Creatinine Clearance 81 mL/min (70-130); Calcium 9.3 mg/dL (7.8-10.44); Carbon Dioxide 26 mmol/L (23-31); Chloride 104 mmol/L (98-107); Estimated GFR 89; Glucose 93 mg/dL (83-110); Potassium 4.8 mmol/L (3.5-5.1); Sodium 136 mmol/L (136-145)
[2023-03-27 05:49] LABS: Band 4 % (5-11); Lymphocytes 85 % (21-51); MDiff Complete? YES; Neutrophil 11 % (42-75)
[2023-03-27] MEDS: guaiFENesin ER 600 MG TAB PO SCH ×2 (07:49→19:57)
[2023-03-27] MEDS: Polyethylene Glycol 3350 17 GM Packet PO SCH (07:49)
[2023-03-27] MEDS: Famotidine 20 MG TAB PO SCH ×2 (07:49→19:56)
[2023-03-27] MEDS: Pregabalin 75 MG CAP PO SCH ×2 (07:50→19:57)
[2023-03-27 19:56] VITALS: BP 100/69; TEMP 98.5
== END 2023-03-27 20:30 | DRG 542 ==
LOC: ERS 16:31 → MSONC 22:07 → IMCU/EMU 03-19 15:37 → MSONC 03-22 17:05
PROVIDERS: ADMIT Hospitalist; ATTEND Hospitalist
PROC: 3E0330M Introduction of Antineoplastic, Monoclonal Antibody, into Peripheral Vein, Percutaneous Approach (ICD-10-PCS; principal; 2023-03-23)
DX: M84.5 Pathological fracture in neoplastic disease (principal); G93.41 Metabolic encephalopathy; J96.21 Acute and chronic respiratory failure with hypoxia; J69.0 Pneumonitis due to inhalation of food and vomit; C78.7 Secondary malignant neoplasm of liver and intrahepatic bile duct; C79.51 Secondary malignant neoplasm of bone; C77.9 Secondary and unspecified malignant neoplasm of lymph node, unspecified; C34.90 Malignant neoplasm of unspecified part of unspecified bronchus or lung; C91.10 Chronic lymphocytic leukemia of B-cell type not having achieved remission; Z20.822 Contact with and (suspected) exposure to COVID-19; E87.5 Hyperkalemia; B96.20 Unspecified Escherichia coli [E. coli] as the cause of diseases classified elsewhere; N30.90 Cystitis, unspecified without hematuria; Z80.7 Family history of other malignant neoplasms of lymphoid, hematopoietic and related tissues; Z80.3 Family history of malignant neoplasm of breast; Z79.899 Other long term (current) drug therapy
CPT/HCPCS: 36415; 70450; 70553; 71045; 71275; 74178; 80048; 80053; 80202; 81001; 82550; 83605; 83615; 84484; 85025; 87040; 87077; 87081; 87086; 87186; 93005; 93010; 93306; 94640; 96374; 96375; 96376; A9579; J0613; J0692; J1100; J1170; J1650; J1815; J1940; J2270; J2272; J2405; J2469; J3370; J3370-JW; J3490; J7030; J7050; J7611; J7620; J7999; J9045; J9181; Q5108; Q9967

== ENCOUNTER 2023-05-25 08:45 | Outpatient (CLI) | payer MEDICARE | END 2023-05-25 08:46 | disposition home or self-care (01) | LOC: PET 08:45 | PROVIDERS: ATTEND Internal Medicine Hematology & Oncology | DX: C34.81 Malignant neoplasm of overlapping sites of right bronchus and lung (principal); C79.51 Secondary malignant neoplasm of bone; C77.1 Secondary and unspecified malignant neoplasm of intrathoracic lymph nodes | CPT/HCPCS: 78815; A9552 ==

== ENCOUNTER 2023-07-03 15:33 | Emergency (ER) | payer MEDICARE ==
[2023-07-03 16:17] LABS: Hematocrit 35.4 % (36.0-47.0); Hemoglobin 10.5 g/dL (12.0-16.0); Manual Diff?? YES; Mean Corpuscular HGB CONC 29.7 g/dL (32.0-36.0); Mean Corpuscular Hemoglobin 32.8 pg (27.0-31.0); Mean Corpuscular Volume 110.6 fl (78.0-98.0); Mean Platelet Volume 10.5 fL (7.4-10.4); Platelet Count 201 10x3/uL (130-400); RBC Distribution Width 21.1 % (11.5-14.5); White Blood Cell (WBC) Count 77.4 10x3/uL (4.8-10.8)
[2023-07-03 16:24] LABS: Delete Auto Diff?? YES
[2023-07-03 16:41] LABS: ALT (SGPT) 20 U/L (8-55); AST (SGOT) 33 U/L (5-34); Albumin 3.9 g/dL (3.4-4.8); Alkaline Phosphatase 98 U/L (40-110); Anion Gap 16 mmol/L (10-20); BUN (Urea Nitrogen) 19 mg/dL (9.8-20.1); Bilirubin, Total 0.4 mg/dL (0.2-1.2); Calc. Creatinine Clearance 0 mL/min (70-130); Calcium 9.4 mg/dL (7.8-10.44); Carbon Dioxide 23 mmol/L (23-31); Chloride 106 mmol/L (98-107); Estimated GFR 75; Globulin 2.7 g/dL (2.4-3.5); Glucose 136 mg/dL (83-110); Potassium 4.7 mmol/L (3.5-5.1); Protein, Total 6.6 g/dL (5.8-8.1); Sodium 140 mmol/L (136-145)
[2023-07-03 17:07] LABS: Anisocytosis SLIGHT = 6-15 cells HPF (0-5); Burr Cells SLIGHT = 2-5 cells HPF (0-1); CellaVision Operator ID LAB.KB; Hypochromia SLIGHT = 6-15 cells HPF (0-5); Lymphocytes 93 % (21-51); Macrocytosis SLIGHT = 6-15 cells HPF (0-5); Monocytes 1 % (0-10); Neutrophil 6 % (42-75); Ovalocytes SLIGHT = 2-5 cells HPF (0-1); Platelet Adequacy Comment Platelets Normal; Polychromasia SLIGHT = 2-3 cells HPF (0-2); Total Cell Count 99
[2023-07-03 18:58] LABS: Troponin I Less than 0.010 ng/mL (< 0.028)
[2023-07-03 18:59] LABS: CK (CPK) 45 U/L (29-168); Lipase 26 U/L (8-78)
[2023-07-03] MEDS ORDERED: Furosemide 40 MG/4 ML VIAL ONE (20:05)
[2023-07-03 22:03] LABS: Bacteria/HPF 1+ HPF (None Seen); Bilirubin Negative (Negative); Blood, Urine Negative (Negative); CAUTI Indications for Culture Alt mental st,lethar; Clarity Turbid (Clear); Glucose, Urine (Dipstick) Normal (Negative); Ketone, Urine Negative (Negative); Leukocyte 500 Leu/uL (Negative); Nitrite 2+ (Negative); Protein, Urine (Dipstick) Negative (Neg-Trace); RBC/HPF 0-3 HPF (0-3); Specific Gravity, Urine 1.009 (1.002-1.036); Squamous Epithelial 0-3 HPF (0-3); Urobilinogen Normal mg/dL (Less than 2); pH, Urine 7.5 (5.0-9.0)
[2023-07-03 22:04] LABS: Urine Culture Reflex No No
== END 2023-07-03 21:21 ==
LOC: ERS 15:33
DX: C78.00 Secondary malignant neoplasm of unspecified lung (principal); R53.1 Weakness; R29.6 Repeated falls; Z87.891 Personal history of nicotine dependence
CPT/HCPCS: 36415; 70450; 71045; 80053; 81001; 82550; 83605; 83690; 84484; 85025; 87040; 93005; 96374; J1940

== ENCOUNTER 2023-07-27 08:45 | Outpatient (CLI) | payer MEDICARE | END 2023-07-27 08:46 | disposition home or self-care (01) | LOC: PET 08:45 | PROVIDERS: ATTEND Internal Medicine Hematology & Oncology | DX: C34.81 Malignant neoplasm of overlapping sites of right bronchus and lung (principal) | CPT/HCPCS: 78815; A9552 ==